=== PATIENT | female | born 1965 | race American Indian/Alaskan Native ===

== ENCOUNTER 2016-11-29 08:54 | Outpatient (CLI) | payer OTHER ==
--- NOTE | 2016-11-29 13:20 | Mammography Report ---
BONE DEXA:11/29/16 08:54:00 CLINICAL: Postmenopausal. No comparison. TECHNIQUE: Two site bone DEXA performed on an Hologic scanner. FINDINGS: The average BMD of the lumbar spine L1-L4 is 1.023g/cm squared with a T-score of -0.2 and a Z-score of + 0.6. The average BMD of the left hip is 0.957g/cm squared with a T-score of + 0.1 and a Z-score of +0.6. IMPRESSION: WHO classification: Normal with average fracture risk based on spine and left hip measurements. RECOMMENDATION: Clinical correlation and routine screening. DEFINITIONS: BMD = Bone Mineral Density T-score = BMD related to mean peak bone mass of young adult (mean expressed in Standard Deviation) Z-score = Age matched BMD expressed in SD World Health Organization (WHO) Diagnostic Criteria Normal T-score > -1 SD Osteopenia T-score between -1 and -2.4 SD Osteoporosis T-score -2.5 SD or below NOTE: BMD is not the only risk factor for fracture. One should also consider factors such as the patient's age, risk of falling, previous osteoporotic fracture, family history of osteoporotic fractures, current smoker, and low body weight. Z-scores are not calculated if >80 years of age.
== END 2016-11-29 08:55 | disposition home or self-care (01) ==
LOC: SPVWC 08:54
PROVIDERS: ATTEND Internal Medicine Hematology & Oncology
DX: Z78.0 Asymptomatic menopausal state (principal)
CPT/HCPCS: 77080

== ENCOUNTER 2018-01-05 08:33 | Outpatient (CLI) | payer OTHER ==
--- NOTE | 2018-01-05 09:22 | Ultrasound Report ---
Limited abdominal ultrasound: Abdominal pain. Images of the liver are unremarkable with normal hepatic size and contour. The gallbladder appears normal. The CBD diameter is 5 mm. Images in the region of the pancreas are limited. The body is relatively well visualized but the head and tail are not seen. No abnormality is noted. The right renal length is 10.8 cm and the kidney is echogenically normal. The transverse diameter of the proximal abdominal aorta is approximately 2 cm. Impression: Suboptimal visualization of the pancreas with an otherwise unremarkable exam.
== END 2018-01-05 08:34 | disposition home or self-care (01) ==
LOC: SPVWC 08:33
DX: R10.9 Unspecified abdominal pain (principal)
CPT/HCPCS: 76705